=== PATIENT | male | born 1970 | race Caucasian/White ===

== ENCOUNTER 2017-05-12 18:23 | Inpatient (IN) | payer OTHER ==
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
--- NOTE | 2017-05-12 18:56 | ED PDOC ---
Arrival/HPI - General Chief Complaint: Palpitations Time Seen by Provider: 05/12/17 18:39 Past Medical History - Infectious Disease Hx of Infectious Diseases: None - Psychiatric Hx Substance Use: No - Anesthesia Hx Anesthesia: No Hx Anesthesia Reactions: No Hx Malignant Hyperthermia: No Family/Social History Smoking Status: Never Smoked Hx Alcohol Use: Yes Frequency of alcohol use: Socially Hx Substance Use: No Allergies/Home Meds Allergies/Adverse Reactions: Allergies No Known Allergies Allergy (Verified 05/12/17 18:38) Home Medications: Home Meds Medication Instructions Recorded Confirmed No Known Home Med 05/12/17 05/12/17 Review of Systems - Review of Systems Constitutional: Normal Eyes: Normal ENT: Normal Cardiovascular: Palpitations Gastrointestinal: Normal Genitourinary Male: Normal Musculoskeletal: Normal Skin: Normal Neurological: Normal Endocrine: Normal Hemo/Lymphatic: Normal Psychiatric: Normal Physical Exam Vital Signs Reviewed: Yes Vital Signs Temp Pulse Resp BP Pulse Ox 05/12/17 18:30 98 F 117 H 20 121/68 99 Temperature: Afebrile Blood Pressure: Hypertensive Pulse: Tachycardic Respiratory Rate: Normal Appearance: Positive for: Well-Appearing, Non-Toxic Pain Distress: None Mental Status: Positive for: Alert and Oriented X 3 - Systems Exam Head: Present: Atraumatic, Normocephalic Pupils: Present: PERRL Extroacular Muscles: Present: EOMI Conjunctiva: Present: Normal Ears: Present: Normal Mouth: Present: Moist Mucous Membranes Pharnyx: Present: Normal Nose (External): Present: Atraumatic Nose (Internal): Present: Normal Inspection Medical Decision Making - EKG Interpretation Interpreted by ED Physician: Yes (sinus tachycardia, flipped t waves avr, v1, flattened avl, incomplete RBBB) Type: 12 lead EKG Disposition/Present on Arrival - Present on Arrival History of DVT/PE: No History of Uncontrolled Diabetes: No Urinary Catheter: No History of Decub. Ulcer: No History Surgical Site Infection Following: None - Disposition
[2017-05-12] MEDS ORDERED: Sodium Chloride 0.9% 1,000 ML IV STA (18:59)
[2017-05-12 19:35] LABS: BASO # 0.01 K/mm3 (0.0-2.0); BASO % 0.1 % (0.0-3.0); EOS # 0.1 (0.0-0.7); EOS % 0.7 % (1.5-5.0); GRAN # 7.25 (1.4-6.5); GRAN % 88.9 % (50.0-68.0); LYMPH # 0.5 (1.2-3.4); LYMPH % 5.5 % (22.0-35.0); MEAN CELL VOLUME 88.3 fl (80.0-105.0); MEAN CORPUSCULAR HEMOGLOBIN 30.8 pg (25.0-35.0); MEAN CORPUSCULAR HGB CONC 34.9 g/dl (31.0-37.0); MEAN PLATELET VOLUME 11.8 fl (7.0-11.0); MONO # 0.4 (0.1-0.6); MONO % 4.8 % (1.0-6.0); RBC 4.54 10^6/uL (3.5-6.1); RED CELL DISTRIBUTION WIDTH 12.5 % (11.5-14.5); WHITE BLOOD COUNT 8.2 10^3/ul (4.5-11.0)
[2017-05-12 19:51] LABS: ALB/GLOB RATIO 1.3 (1.1-1.8); ALBUMIN 4.3 g/dL (3.0-4.8); ALT/SGPT 37 U/L (7-56); AST/SGOT 25 U/L (17-59); BLOOD UREA NITROGEN 16 mg/dL (7-21); GFR AFRICAN-AMERICAN > 60; GFR NON-AFRICAN AMERICAN > 60; MAGNESIUM 2.1 mg/dL (1.7-2.2)
[2017-05-12 19:58] LABS: B-TYPE NATRIURETIC PEPTIDE 43.6 pg/mL (0-450); INR 1.11 (0.93-1.08); PARTIAL THROMBOPLASTIN TIME 33.2 Seconds (25.1-36.5); PROTHROMBIN TIME 12.7 SECONDS (9.4-12.5); TROPONIN I < 0.01 ng/mL
[2017-05-12] MEDS ORDERED: Iohexol 350 MG/100 ML VIAL ONE (21:04)
--- NOTE | 2017-05-12 22:42 | CT ---
EXAM: CT Angiography Chest With Intravenous Contrast CLINICAL HISTORY: 47 years old, male; Pain; Chest pain; Patient HX: 47yom, palpitations, elevated d-dimer. Eval pe. ; Additional info: 47yom, palpitations, elevated d-dimer. Eval pe. TECHNIQUE: Axial computed tomographic angiography images of the chest with intravenous contrast using pulmonary embolism protocol. All CT scans at this facility use one or more dose reduction techniques, viz.: automated exposure control; ma/kV adjustment per patient size (including targeted exams where dose is matched to indication; i.e. head); or iterative reconstruction technique. MIP reconstructed images were created and reviewed. Coronal and sagittal reformatted images were created and reviewed. CONTRAST: 98 mL of OMNIPAQUE 350 administered intravenously. COMPARISON: No relevant prior studies available. FINDINGS: Pulmonary arteries: No acute pulmonary embolism. Aorta: No acute findings. No thoracic aortic aneurysm. Lungs: Unremarkable. No mass. No consolidation. Pleural space: Unremarkable. No significant effusion. No pneumothorax. Heart: Unremarkable. No cardiomegaly. No significant pericardial effusion. Bones/joints: No acute fracture. No dislocation. Soft tissues: Unremarkable. Lymph nodes: Unremarkable. No enlarged lymph nodes. IMPRESSION: 1. No acute pulmonary embolism. 2. Remainder of findings as above.
[2017-05-12] MEDS ORDERED: Sodium Chloride 0.9% 500 ML IV STA (23:33)
[2017-05-12] MEDS ORDERED: Sodium Chloride 0.9% 1,000 ML IV SCH (23:45)
[2017-05-12] MEDS ORDERED: levoFLOXacin 750 mg in D5W 750 MG/150 ML BAG IVPB SCH (23:45)
--- NOTE | 2017-05-12 23:51 | CP.PCM.HP ---
History of Present Illness - History of Present Illness History of Present Illness: Chief Complaint cough, dizziness, fevers, chills, palpitations, body aches, nausea and vomiting. HPIPatient is a 47 year old male with a past medical history significant for coagulation disorder which patient cannot recall at the moment who presents to [facility] ED on 05/12/16 with complaints of cough, dizziness, fevers, chills, palpitations, body aches, nausea and vomiting. Patient states his symptoms first began with a cough yesterday followed by the remaining symptoms which began today. Patient denies chest pain, shortness of breath, diarrhea. PMD: Dr. Kaiser in [place], [place] Past medical history: patient states 8 years prior he experienced an episode where he couldn't see out of his right eye, went to [facility] and was diagnosed with a retinal clot. Patient was placed on plavix but stopped taking due to cost of medication. Family history: non contributory Social history: denies tobacco use, alcohol consumption, illicit drug use Medications: prescribed plavix in the past however stopped taking due to cost of medication. Patient states his PMD suggested aspirin instead however patient was nervous due to increased bleeding aspirin can cause from what he has seen on television Surgical history: denies Labs:WBC 8.2, H&H 14/40.1, Sodium 138, Potassium 3.9, Chloride 105, Bicarbonate 22, BUN 16, Creatinine 0.8, AST 25, ALT 37, Troponin 0.01 Vitals: Rectal temp: 101.8 CTA: Lymph nodes: Unremarkable. No enlarged lymph nodes. No acute pulmonary embolism. Present on Admission - Present on Admission Any Indicators Present on Admission: No Review of Systems - Review of Systems Systems not reviewed;Unavailable: Acuity of Condition - Constitutional Constitutional: Chills, Fever. absent: Headache - EENT Eyes: absent: Blurred Vision, Change in Vision - Cardiovascular Cardiovascular: Palpitations. absent: Chest Pain, Dyspnea, Dyspnea on Exertion - Respiratory Respiratory: Cough, Chest Congestion. absent: Dyspnea - Gastrointestinal Gastrointestinal: Nausea, Vomiting. absent: Diarrhea - Genitourinary Genitourinary: absent: Difficulty Urinating, Dysuria - Neurological Neurological: Dizziness. absent: Numbness - Psychiatric Psychiatric: absent: Anxiety - Hematologic/Lymphatic Hematologic: absent: Easy Bleeding, Easy Bruising Past Patient History - Infectious Disease Hx of Infectious Diseases: None - Past Social History Smoking Status: Never Smoked - PSYCHIATRIC Hx Substance Use: No - SURGICAL HISTORY Hx Surgeries: No - ANESTHESIA Hx Anesthesia: No Hx Anesthesia Reactions: No Hx Malignant Hyperthermia: No Meds Allergies/Adverse Reactions: Allergies Allergy/AdvReac Type Severity Reaction Status Date / Time No Known Allergies Allergy Verified 05/12/17 18:38 Physical Exam - Constitutional Appears: Non-toxic, No Acute Distress - Head Exam Head Exam: ATRAUMATIC, NORMAL INSPECTION, NORMOCEPHALIC - Eye Exam Eye Exam: EOMI, Normal appearance - ENT Exam ENT Exam: Mucous Membranes Moist - Neck Exam Neck exam: Positive for: Normal Inspection - Respiratory Exam Respiratory Exam: Clear to Auscultation Bilateral, NORMAL BREATHING PATTERN. absent: Rhonchi, Wheezes - Cardiovascular Exam Cardiovascular Exam: REGULAR RHYTHM, +S1, +S2 - GI/Abdominal Exam GI & Abdominal Exam: Normal Bowel Sounds, Soft - Rectal Exam Rectal Exam: NORMAL INSPECTION - Neurological Exam Neurological exam: Alert, CN II-XII Intact, Oriented x3 - Psychiatric Exam Psychiatric exam: Normal Affect, Normal Mood - Skin Skin Exam: Intact, Normal Color, Warm Results - Vital Signs Recent Vital Signs: Last Vital Signs Temp 101.8 F H 05/12/17 23:39 Pulse 114 H 05/12/17 22:35 Resp 17 05/12/17 22:35 BP 115/72 05/12/17 22:35 Pulse Ox 98 05/12/17 22:35 - Labs Result Diagrams: 05/12/17 19:00 05/12/17 19:00 Assessment & Plan - Assessment and Plan (Free Text) Assessment: Patient is a 47 year old male with a past medical history significant for coagulation disorder which patient cannot recall at the moment who presents to [facility] ED on 05/12/16 with complaints of cough, dizziness, fevers, chills, palpitations, body aches, nausea and vomiting. Plan: Influenza -Rapid flu ordered; positive -Tamiflu started -Zofran started for nausea -Robitussin PRN for cough -Procalcitonin ordered; results pending -CBC, CMP, HgA1C, TSH ordered; please follow up with results in morning -Blood cultures ordered; results pending -Heart healthy diet Case reviewed and discussed with Dr. Kaleigh Escalante PGY1
[2017-05-12 23:56] LABS: VENOUS BLOOD GAS BASE EXCESS 2.5 mmol/L (0.0-2.0); VENOUS BLOOD GAS PO2 25 mm/Hg (30-55)
[2017-05-13] MEDS: guaiFENesin 100 mg/5 ml Syrup UD PO PRN ×4 (00:52→17:49)
[2017-05-13 07:27] LABS: BASO # 0.01 K/mm3 (0.0-2.0); BASO % 0.2 % (0.0-3.0); EOS % 0.2 % (1.5-5.0); GRAN # 4.92 (1.4-6.5); GRAN % 83.9 % (50.0-68.0); HEMOGLOBIN 13.1 g/dL (14.0-18.0); LYMPH # 0.6 (1.2-3.4); LYMPH % 9.6 % (22.0-35.0); MEAN CELL VOLUME 88.6 fl (80.0-105.0); MEAN CORPUSCULAR HEMOGLOBIN 29.8 pg (25.0-35.0); MEAN CORPUSCULAR HGB CONC 33.7 g/dl (31.0-37.0); MEAN PLATELET VOLUME 12.7 fl (7.0-11.0); MONO # 0.4 (0.1-0.6); MONO % 6.1 % (1.0-6.0); RBC 4.39 10^6/uL (3.5-6.1); RED CELL DISTRIBUTION WIDTH 12.7 % (11.5-14.5); WHITE BLOOD COUNT 5.9 10^3/ul (4.5-11.0)
[2017-05-13 07:49] LABS: ALB/GLOB RATIO 1.2 (1.1-1.8); ALBUMIN 3.7 g/dL (3.0-4.8); ALT/SGPT 30 U/L (7-56); AST/SGOT 20 U/L (17-59); BLOOD UREA NITROGEN 11 mg/dL (7-21); CALCIUM 8.3 mg/dL (8.4-10.5); GFR AFRICAN-AMERICAN > 60; GFR NON-AFRICAN AMERICAN > 60
--- NOTE | 2017-05-13 10:23 | CARD ---
APPROVED REPORT EKG Measurement Heart [id number] <Conclusion> Sinus tachycardia NSSTW changes RVCD
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
[2017-05-13] MEDS: Benzocaine/Menthol (Cepacol) Lozenge MT PRN (14:03)
[2017-05-13] MEDS: Sodium Chloride 0.9% 1,000 ML IV SCH ×2 (16:10→22:22)
[2017-05-13 16:58] VITALS: RESP 20
[2017-05-14] MEDS: Benzocaine/Menthol (Cepacol) Lozenge MT PRN ×3 (04:28→21:57)
[2017-05-14] MEDS: guaiFENesin 100 mg/5 ml Syrup UD PO PRN ×4 (04:28→21:57)
[2017-05-14] MEDS: Sodium Chloride 0.9% 1,000 ML IV SCH ×3 (05:31→19:45)
[2017-05-14 06:39] LABS: EOS % 0.4 % (1.5-5.0); GRAN # 2.96 (1.4-6.5); HEMOGLOBIN 12.8 g/dL (14.0-18.0); LYMPH # 1.4 (1.2-3.4); LYMPH % 27.7 % (22.0-35.0); MEAN CORPUSCULAR HEMOGLOBIN 29.4 pg (25.0-35.0); MEAN CORPUSCULAR HGB CONC 33.1 g/dl (31.0-37.0); MEAN PLATELET VOLUME 12.9 fl (7.0-11.0); MONO # 0.6 (0.1-0.6); MONO % 11.9 % (1.0-6.0); RBC 4.35 10^6/uL (3.5-6.1); RED CELL DISTRIBUTION WIDTH 12.9 % (11.5-14.5); WHITE BLOOD COUNT 4.9 10^3/ul (4.5-11.0)
[2017-05-14 06:55] LABS: ALB/GLOB RATIO 1.1 (1.1-1.8); ALBUMIN 3.2 g/dL (3.0-4.8); ALT/SGPT 34 U/L (7-56); AST/SGOT 23 U/L (17-59); BLOOD UREA NITROGEN 11 mg/dL (7-21); CALCIUM 7.9 mg/dL (8.4-10.5); GFR AFRICAN-AMERICAN > 60; GFR NON-AFRICAN AMERICAN > 60
[2017-05-14 13:48] LABS: PH,URINE 6.5 (4.7-8.0); URINE BILIRUBIN NEGATIVE (NEGATIVE); URINE BLOOD NEGATIVE (NEGATIVE); URINE GLUCOSE (UA) NEGATIVE (NEGATIVE); URINE LEUKOCYTE ESTERASE NEGATIVE Leu/uL (NEGATIVE); URINE NITRATE NEGATIVE (NEGATIVE); URINE PROTEIN NEGATIVE mg/dL (<30 mg/dL); URINE UROBILINOGEN 0.2 E.U./dL (<1 E.U./dL)
[2017-05-14 13:56] LABS: URINE APPEARANCE CLEAR (CLEAR); URINE COLOR YELLOW (YELLOW)
--- NOTE | 2017-05-14 14:30 | CP.PCM.PN ---
<Hermann Pérez - Last Filed: 05/14/17 14:27> Subjective - Date & Time of Evaluation Date of Evaluation: 05/14/17 Time of Evaluation: 07:30 - Subjective Subjective: Hermann Pérez DO PGY1 - IM Progress Note Patient seen and examined at bedside. Nurse reports that patient had fever to 102.1 overnight, at around 0400 this morning. Patient does report subjective fever, as well as cough and sweating. He denies chest pain, shortness of breath , nausea, vomting, diarrhea, constipation, abdominal pain, dysuria, hematuria, rash. Objective - Vital Signs/Intake and Output Vital Signs (last 24 hours): Temp Pulse Resp BP Pulse Ox 98.4 F 85 20 117/76 95 05/14/17 08:54 05/14/17 08:22 05/14/17 08:22 05/14/17 08:22 05/14/17 08:22 Intake and Output: 05/14/17 05/14/17 06:59 18:59 Intake Total 1910 Output Total 0 Balance 1910 - Medications Medications: Current Medications Benzocaine/Menthol (Cepacol Sore Throat) 1 xi MT Q2H PRN PRN Reason: Sore Throat Last Admin: 05/14/17 04:28 Dose: 1 xi Guaifenesin (Robitussin) 100 mg PO Q4H PRN PRN Reason: Cough Last Admin: 05/14/17 10:10 Dose: 100 mg Heparin Sodium (Porcine) (Heparin) 5,000 units SC Q8 TAMIKA PRN Reason: Protocol Last Admin: 05/14/17 05:48 Dose: 5,000 units Sodium Chloride (Sodium Chloride 0.9%) 1,000 mls @ 150 mls/hr IV .Q6H40M [facility] Last Admin: 05/14/17 05:31 Dose: 150 mls/hr Ibuprofen (Motrin Tab) 600 mg PO Q6H PRN PRN Reason: Fever >100.4 F Ondansetron HCl (Zofran Inj) 4 mg IVP Q6H PRN PRN Reason: Nausea/Vomiting Last Admin: 05/13/17 00:52 Dose: 4 mg Oseltamivir Phosphate (Tamiflu Cap) 75 mg PO BID [facility] PRN Reason: Protocol Stop: 05/18/17 02:31 Last Admin: 05/14/17 10:10 Dose: 75 mg Pantoprazole Sodium (Protonix Ec Tab) 40 mg PO ACB TAMIKA - Labs Labs: 05/14/17 05:45 05/14/17 05:45 PT 12.7 SECONDS (9.4-12.5) H 05/12/17 19:00 INR 1.11 (0.93-1.08) H 05/12/17 19:00 APTT 28.6 Seconds (25.1-36.5) 05/13/17 07:00 - Constitutional Appears: Non-toxic, No Acute Distress, Other (Diaphoretic) - Head Exam Head Exam: ATRAUMATIC, NORMOCEPHALIC - Eye Exam Eye Exam: EOMI, Normal appearance, PERRL - ENT Exam ENT Exam: Mucous Membranes Moist - Neck Exam Neck Exam: Normal Inspection - Respiratory Exam Respiratory Exam: Clear to Ausculation Bilateral, NORMAL BREATHING PATTERN - Cardiovascular Exam Cardiovascular Exam: RRR, +S1, +S2. absent: Tachycardia - GI/Abdominal Exam GI & Abdominal Exam: Soft, Normal Bowel Sounds. absent: Distended, Firm, Guarding, Rigid, Tenderness - Extremities Exam Extremities Exam: absent: Calf Tenderness, Pedal Edema - Neurological Exam Neurological Exam: Alert, Awake, Oriented x3 - Psychiatric Exam Psychiatric exam: Normal Affect, Normal Mood - Skin Skin Exam: Dry, Intact, Normal Color Assessment and Plan - Assessment and Plan (Free Text) Assessment: 47 yo M with a PMH significant for coagulation disorder (unspecified) who presents with two days of flu-like symptoms and found to be positive for Influenza. Patient was started on Tamiflu and can be discharged once he is afebrile for 24 hours, with his last recorded fever of 102.1 (oral) at 0822 on . Plan: 1. Influenza A -Patient spiking recurrent fevers; most likely 2/2 flu -Physical exam unremarkable except for diaphoresis; subjectively only complaining of cough -UA collected today, unremarkable -Continue Tamiflu d2 -Normal Saline at 150mls/hr -Robitussin PRN for cough -Tylenol PRN for fever; added motrin PRN for breakthrough fever -Zofran PRN for N/V -Cepacol xi PRN for throat irritation -Blood Cultures show now growth after 24 hours -Procal negative; low likelyhood for bacterial infection/sepsis 2. Coagulation Disorder (Unspecified) -Will attempt to reach patients PMD, Dr. Kaiser in [place], for further insight on this condition GI Prophylaxis: Protonix DVT Prophylaxis: Heparin Patient seen and case discussed with attending, Dr. Cecilio Farris. <Cecilio Farris - Last Filed: 05/16/17 16:26> Objective - Vital Signs/Intake and Output Vital Signs (last 24 hours): Temp Pulse Resp BP Pulse Ox 98.4 F 78 20 117/76 95 05/14/17 08:54 05/14/17 14:00 05/14/17 08:22 05/14/17 08:22 05/14/17 08:22 - Medications Medications: Current Medications Benzocaine/Menthol (Cepacol Sore Throat) 1 xi MT Q2H PRN PRN Reason: Sore Throat Last Admin: 05/14/17 15:02 Dose: 1 xi Guaifenesin (Robitussin) 100 mg PO Q4H PRN PRN Reason: Cough Last Admin: 05/14/17 15:03 Dose: 100 mg Heparin Sodium (Porcine) (Heparin) 5,000 units SC Q8 TAMIKA PRN Reason: Protocol Last Admin: 05/14/17 15:06 Dose: 5,000 units Sodium Chloride (Sodium Chloride 0.9%) 1,000 mls @ 150 mls/hr IV .Q6H40M [facility] Last Admin: 05/14/17 15:03 Dose: 150 mls/hr Ibuprofen (Motrin Tab) 600 mg PO Q6H PRN PRN Reason: Fever >100.4 F Ondansetron HCl (Zofran Inj) 4 mg IVP Q6H PRN PRN Reason: Nausea/Vomiting Last Admin: 05/13/17 00:52 Dose: 4 mg Oseltamivir Phosphate (Tamiflu Cap) 75 mg PO BID [facility] PRN Reason: Protocol Stop: 05/18/17 02:31 Last Admin: 05/14/17 17:15 Dose: 75 mg Pantoprazole Sodium (Protonix Ec Tab) 40 mg PO ACB TAMIKA - Labs Labs: PT 12.7 SECONDS (9.4-12.5) H 05/12/17 19:00 INR 1.11 (0.93-1.08) H 05/12/17 19:00 APTT 28.6 Seconds (25.1-36.5) 05/13/17 07:00 Attending/Attestation - Attestation I have personally seen and examined this patient.: Yes I have fully participated in the care of the patient.: Yes I have reviewed all pertinent clinical information, including history, physical exam and plan: Yes Notes (Text): I have seen and examined the patient at bedside. Agree with the above note with the following additions/ exceptions: Briefly this is 47 year old male who came for high fevers, chills, diaphoresis, cough, congestion, palpitations and dizziness and found to have influenza A. Patient continues to have high fever, chills , diaphoresis and decrease appetite. Continue IVF and tamiflu. CT negative for infiltrate. UA pending. Continue supportive treatment. Upon discharge patient will follow up with Dr Kaiser. Dr Cecilio Farris
[2017-05-15] MEDS: Sodium Chloride 0.9% 1,000 ML IV SCH (05:42)
[2017-05-15] MEDS ORDERED: Pantoprazole 40 mg EC Tab PO SCH (07:30)
[2017-05-15 08:30] VITALS: BP 115/79; PULSE 66; TEMP 98.1; O2SAT 100
--- NOTE | 2017-05-15 09:52 | CP.PCM.DIS ---
<Hermann Pérez - Last Filed: 05/15/17 09:57> Provider - Provider Date of Admission: 05/14/17 11:06 Attending physician: Cecilio Farris MD Time Spent in preparation of Discharge (in minutes): 45 Diagnosis - Discharge Diagnosis (1) Flu Status: Acute (2) Palpitations Status: Acute Hospital Course - Lab Results Lab Results: Most Recent Lab Values WBC 4.9 10^3/ul (4.5-11.0) 05/14/17 05:45 RBC 4.35 10^6/uL (3.5-6.1) 05/14/17 05:45 Hgb 12.8 g/dL (14.0-18.0) L 05/14/17 05:45 Hct 38.7 % (42.0-52.0) L 05/14/17 05:45 MCV 89.0 fl (80.0-105.0) 05/14/17 05:45 MCH 29.4 pg (25.0-35.0) 05/14/17 05:45 MCHC 33.1 g/dl (31.0-37.0) 05/14/17 05:45 RDW 12.9 % (11.5-14.5) 05/14/17 05:45 Plt Count 112 10^3/uL (120.0-450.0) L 05/14/17 05:45 MPV 12.9 fl (7.0-11.0) H 05/14/17 05:45 Gran % 60.0 % (50.0-68.0) 05/14/17 05:45 Lymph % (Auto) 27.7 % (22.0-35.0) 05/14/17 05:45 Kendall % (Auto) 11.9 % (1.0-6.0) H 05/14/17 05:45 Eos % (Auto) 0.4 % (1.5-5.0) L 05/14/17 05:45 Baso % (Auto) 0.0 % (0.0-3.0) 05/14/17 05:45 Gran # 2.96 (1.4-6.5) 05/14/17 05:45 Lymph # 1.4 (1.2-3.4) 05/14/17 05:45 Kendall # 0.6 (0.1-0.6) 05/14/17 05:45 Eos # 0.0 (0.0-0.7) 05/14/17 05:45 Baso # 0.00 K/mm3 (0.0-2.0) 05/14/17 05:45 PT 12.7 SECONDS (9.4-12.5) H 05/12/17 19:00 INR 1.11 (0.93-1.08) H 05/12/17 19:00 APTT 28.6 Seconds (25.1-36.5) 05/13/17 07:00 D-Dimer, Quantitative 287 ng/mL (0-243) H 05/12/17 19:00 pO2 25 mm/Hg (30-55) L 05/12/17 23:40 VBG pH 7.40 (7.32-7.43) 05/12/17 23:40 VBG pCO2 45.0 (40-60) 05/12/17 23:40 VBG HCO3 27.9 mmol/l (21-28) 05/12/17 23:40 VBG Total CO2 29.3 mmol.L (22-28) H 05/12/17 23:40 VBG O2 Sat (Calc) 70.1 % (40-65) H 05/12/17 23:40 VBG Base Excess 2.5 mmol/L (0.0-2.0) H 05/12/17 23:40 VBG Potassium 4.0 mmol/L (3.6-5.2) 05/12/17 23:40 Sodium 137.0 mmol/L (132-148) 05/12/17 23:40 Chloride 109.0 mmol/L (98-107) H 05/12/17 23:40 Glucose 136 mg/dl (75-110) H 05/12/17 23:40 Lactate 1.3 mmol/L (0.7-2.1) 05/12/17 23:40 FiO2 21.0 % 05/12/17 23:40 Sodium 139 mmol/L (132-148) 05/14/17 05:45 Potassium 3.6 mmol/L (3.6-5.0) 05/14/17 05:45 Chloride 108 mmol/L (98-107) H 05/14/17 05:45 Carbon Dioxide 21 mmol/L (21-33) 05/14/17 05:45 Anion Gap 13 (10-20) 05/14/17 05:45 BUN 11 mg/dL (7-21) 05/14/17 05:45 Creatinine 0.7 mg/dl (0.8-1.5) L 05/14/17 05:45 Est GFR ( Amer) > 60 05/14/17 05:45 Est GFR (Non-Af Amer) > 60 05/14/17 05:45 POC Glucose (mg/dL) 91 mg/dL (65-110) 05/13/17 11:27 Random Glucose 87 mg/dL (70-110) 05/14/17 05:45 Hemoglobin A1c 5.7 % (4.2-6.5) 05/12/17 19:00 Calcium 7.9 mg/dL (8.4-10.5) L 05/14/17 05:45 Magnesium 2.1 mg/dL (1.7-2.2) 05/12/17 19:00 Total Bilirubin 0.4 mg/dL (0.2-1.3) 05/14/17 05:45 AST 23 U/L (17-59) 05/14/17 05:45 ALT 34 U/L (7-56) 05/14/17 05:45 Alkaline Phosphatase 60 U/L (38-126) 05/14/17 05:45 Lactate Dehydrogenase 518 U/L (333-699) 05/12/17 19:00 Total Creatine Kinase 64 U/L (35-230) 05/12/17 19:00 Troponin I < 0.01 ng/mL 05/12/17 19:00 NT-Pro-B Natriuret Pep 43.6 pg/mL (0-450) 05/12/17 19:00 Total Protein 6.0 g/dL (5.8-8.3) 05/14/17 05:45 Albumin 3.2 g/dL (3.0-4.8) 05/14/17 05:45 Globulin 2.8 gm/dL 05/14/17 05:45 Albumin/Globulin Ratio 1.1 (1.1-1.8) 05/14/17 05:45 Procalcitonin < 0.05 NG/ML (0.19-0.49) L 05/12/17 23:40 TSH 3rd Generation 1.50 mIU/mL (0.46-4.68) 05/12/17 19:00 Venous Blood Potassium 4.0 mmol/L (3.6-5.2) 05/12/17 23:40 Urine Color Yellow (YELLOW) 05/14/17 13:24 Urine Appearance Clear (CLEAR) 05/14/17 13:24 Urine pH 6.5 (4.7-8.0) 05/14/17 13:24 Ur Specific Everson 1.010 (1.005-1.035) 05/14/17 13:24 Urine Protein Negative mg/dL (<30 mg/dL) 05/14/17 13:24 Urine Glucose (UA) Negative mg/dL (NEGATIVE) 05/14/17 13:24 Urine Ketones Negative mg/dL (NEGATIVE) 05/14/17 13:24 Urine Blood Negative (NEGATIVE) 05/14/17 13:24 Urine Nitrate Negative (NEGATIVE) 05/14/17 13:24 Urine Bilirubin Negative (NEGATIVE) 05/14/17 13:24 Urine Urobilinogen 0.2 E.U./dL (<1 E.U./dL) 05/14/17 13:24 Ur Leukocyte Esterase Negative Chandra/uL (NEGATIVE) 05/14/17 13:24 Influenza Typ A,B (EIA) Pos for influenza a (NEGATIVE) H 05/13/17 01:17 - Hospital Course Hospital Course: 47 yo M with a PMH significant for coagulation disorder (unspecified) who presents with two days of flu-like symptoms and found to be positive for Influenza. Patient was started on Tamiflu and placed on droplet isolation precautions. Workup for other sources of infection were all negative. Patient has been afebrile for the past 24 hours and is no longer complaining of fevers, chills, or cough. He also denies any chest pain, shortness of breath, nausea, vomiting, diarrhea, constipation, dysuria, or hematuria. He was instructed to continue taking Tamiflu to complete the 5 day course, and to continue wearing a mask while on Tamiflu. He was given prescription for Tamiflu, all questions were answered to his satisfaction, and he was discharged to home. Discharge Exam - Head Exam Head Exam: ATRAUMATIC, NORMOCEPHALIC - Eye Exam Eye Exam: EOMI, Normal appearance, PERRL - ENT Exam ENT Exam: Mucous Membranes Moist - Neck Exam Neck exam: Normal Inspection - Respiratory Exam Respiratory Exam: Clear to PA & Lateral, NORMAL BREATHING PATTERN - Cardiovascular Exam Cardiovascular Exam: REGULAR RHYTHM, +S1, +S2 - GI/Abdominal Exam GI & Abdominal Exam: Normal Bowel Sounds, Soft. absent: Tenderness - Extremities Exam Extremities exam: normal inspection - Neurological Exam Neurological exam: Alert, Oriented x3 - Psychiatric Exam Psychiatric exam: Normal Affect, Normal Mood - Skin Skin Exam: Dry, Intact, Normal Color Discharge Plan - Discharge Medications Prescriptions: guaiFENesin [Robitussin] 100 mg PO Q4H PRN #1 bottle PRN Reason: Cough Oseltamivir [Tamiflu Cap] 75 mg PO BID #8 cap - Follow Up Plan Condition: STABLE Disposition: HOME/ ROUTINE Instructions: Influenza (DC), Influenza (GEN) Additional Instructions: 1. Continue to take Tamiflu for 3 more days 2. Continue to wear a mask while around others for more days and wash your hands frequently 3. Follow up with your PCP within one week 4. For any new or worsening concerns, contact your PCP immediately or return to the ER <Cecilio Farris - Last Filed: 05/16/17 16:35> Provider - Provider Date of Admission: 05/14/17 11:06 Attending physician: Cecilio Farris MD Hospital Course - Lab Results Lab Results: Micro Results 05/14/17 13:24 Urine Urine Culture - Final No Growth (<1,000 CFU/ML) Most Recent Lab Values WBC 4.9 10^3/ul (4.5-11.0) 05/14/17 05:45 RBC 4.35 10^6/uL (3.5-6.1) 05/14/17 05:45 Hgb 12.8 g/dL (14.0-18.0) L 05/14/17 05:45 Hct 38.7 % (42.0-52.0) L 05/14/17 05:45 MCV 89.0 fl (80.0-105.0) 05/14/17 05:45 MCH 29.4 pg (25.0-35.0) 05/14/17 05:45 MCHC 33.1 g/dl (31.0-37.0) 05/14/17 05:45 RDW 12.9 % (11.5-14.5) 05/14/17 05:45 Plt Count 112 10^3/uL (120.0-450.0) L 05/14/17 05:45 MPV 12.9 fl (7.0-11.0) H 05/14/17 05:45 Gran % 60.0 % (50.0-68.0) 05/14/17 05:45 Lymph % (Auto) 27.7 % (22.0-35.0) 05/14/17 05:45 Kendall % (Auto) 11.9 % (1.0-6.0) H 05/14/17 05:45 Eos % (Auto) 0.4 % (1.5-5.0) L 05/14/17 05:45 Baso % (Auto) 0.0 % (0.0-3.0) 05/14/17 05:45 Gran # 2.96 (1.4-6.5) 05/14/17 05:45 Lymph # 1.4 (1.2-3.4) 05/14/17 05:45 Kendall # 0.6 (0.1-0.6) 05/14/17 05:45 Eos # 0.0 (0.0-0.7) 05/14/17 05:45 Baso # 0.00 K/mm3 (0.0-2.0) 05/14/17 05:45 PT 12.7 SECONDS (9.4-12.5) H 05/12/17 19:00 INR 1.11 (0.93-1.08) H 05/12/17 19:00 APTT 28.6 Seconds (25.1-36.5) 05/13/17 07:00 D-Dimer, Quantitative 287 ng/mL (0-243) H 05/12/17 19:00 pO2 25 mm/Hg (30-55) L 05/12/17 23:40 VBG pH 7.40 (7.32-7.43) 05/12/17 23:40 VBG pCO2 45.0 (40-60) 05/12/17 23:40 VBG HCO3 27.9 mmol/l (21-28) 05/12/17 23:40 VBG Total CO2 29.3 mmol.L (22-28) H 05/12/17 23:40 VBG O2 Sat (Calc) 70.1 % (40-65) H 05/12/17 23:40 VBG Base Excess 2.5 mmol/L (0.0-2.0) H 05/12/17 23:40 VBG Potassium 4.0 mmol/L (3.6-5.2) 05/12/17 23:40 Sodium 137.0 mmol/L (132-148) 05/12/17 23:40 Chloride 109.0 mmol/L (98-107) H 05/12/17 23:40 Glucose 136 mg/dl (75-110) H 05/12/17 23:40 Lactate 1.3 mmol/L (0.7-2.1) 05/12/17 23:40 FiO2 21.0 % 05/12/17 23:40 Sodium 139 mmol/L (132-148) 05/14/17 05:45 Potassium 3.6 mmol/L (3.6-5.0) 05/14/17 05:45 Chloride 108 mmol/L (98-107) H 05/14/17 05:45 Carbon Dioxide 21 mmol/L (21-33) 05/14/17 05:45 Anion Gap 13 (10-20) 05/14/17 05:45 BUN 11 mg/dL (7-21) 05/14/17 05:45 Creatinine 0.7 mg/dl (0.8-1.5) L 05/14/17 05:45 Est GFR ( Amer) > 60 05/14/17 05:45 Est GFR (Non-Af Amer) > 60 05/14/17 05:45 POC Glucose (mg/dL) 91 mg/dL (65-110) 05/13/17 11:27 Random Glucose 87 mg/dL (70-110) 05/14/17 05:45 Hemoglobin A1c 5.7 % (4.2-6.5) 05/12/17 19:00 Calcium 7.9 mg/dL (8.4-10.5) L 05/14/17 05:45 Magnesium 2.1 mg/dL (1.7-2.2) 05/12/17 19:00 Total Bilirubin 0.4 mg/dL (0.2-1.3) 05/14/17 05:45 AST 23 U/L (17-59) 05/14/17 05:45 ALT 34 U/L (7-56) 05/14/17 05:45 Alkaline Phosphatase 60 U/L (38-126) 05/14/17 05:45 Lactate Dehydrogenase 518 U/L (333-699) 05/12/17 19:00 Total Creatine Kinase 64 U/L (35-230) 05/12/17 19:00 Troponin I < 0.01 ng/mL 05/12/17 19:00 NT-Pro-B Natriuret Pep 43.6 pg/mL (0-450) 05/12/17 19:00 Total Protein 6.0 g/dL (5.8-8.3) 05/14/17 05:45 Albumin 3.2 g/dL (3.0-4.8) 05/14/17 05:45 Globulin 2.8 gm/dL 05/14/17 05:45 Albumin/Globulin Ratio 1.1 (1.1-1.8) 05/14/17 05:45 Procalcitonin < 0.05 NG/ML (0.19-0.49) L 05/12/17 23:40 TSH 3rd Generation 1.50 mIU/mL (0.46-4.68) 05/12/17 19:00 Venous Blood Potassium 4.0 mmol/L (3.6-5.2) 05/12/17 23:40 Urine Color Yellow (YELLOW) 05/14/17 13:24 Urine Appearance Clear (CLEAR) 05/14/17 13:24 Urine pH 6.5 (4.7-8.0) 05/14/17 13:24 Ur Specific E[place]on 1.010 (1.005-1.035) 05/14/17 13:24 Urine Protein Negative mg/dL (<30 mg/dL) 05/14/17 13:24 Urine Glucose (UA) Negative mg/dL (NEGATIVE) 05/14/17 13:24 Urine Ketones Negative mg/dL (NEGATIVE) 05/14/17 13:24 Urine Blood Negative (NEGATIVE) 05/14/17 13:24 Urine Nitrate Negative (NEGATIVE) 05/14/17 13:24 Urine Bilirubin Negative (NEGATIVE) 05/14/17 13:24 Urine Urobilinogen 0.2 E.U./dL (<1 E.U./dL) 05/14/17 13:24 Ur Leukocyte Esterase Negative Chandra/uL (NEGATIVE) 05/14/17 13:24 Influenza Typ A,B (EIA) Pos for influenza a (NEGATIVE) H 05/13/17 01:17 Attending/Attestation - Attestation I have personally seen and examined this patient.: Yes I have fully participated in the care of the patient.: Yes I have reviewed all pertinent clinical information, including history, physical exam and plan: Yes Notes (Text): I have seen and examined the patient at bedside. Agree with the above note with the following additions/ exceptions: Briefly this is 47 year old male who came for high fevers, chills, diaphoresis, cough, congestion, palpitations and dizziness and found to have influenza A. Patient feels better today. Denies any complaints. Continue tamiflu to complete [address] negative for infiltrate. UA negative. Procal is <0.05. Upon discharge patient will follow up with Dr Kaiser. Dr Cecilio Farris
== END 2017-05-15 10:09 | disposition home or self-care (01) | DRG 69 ==
LOC: ED 18:23 → ERH 23:15 → 3RNO 05-13 02:46 → OBSVTOIN 05-14 11:06
PROVIDERS: ADMIT Hospitalist; ATTEND Hospitalist
DX: J10.1 Influenza due to other identified influenza virus with other respiratory manifestations (principal); D68.9 Coagulation defect, unspecified; R00.2 Palpitations